=== PATIENT | female | born 1945 ===

== ENCOUNTER 2016-12-25 08:18 | Emergency (ER) | payer MEDICARE ==
[2016-12-25 08:18] VITALS: BMI 33.8
[2016-12-25 08:30] VITALS: RESP 18; TEMP 97.7
[2016-12-25] MEDS ORDERED: Sodium Chloride 0.9% 500 ML IV ONE (09:11)
[2016-12-25 09:35] LABS: BASO # 0.1 K/uL (0.0-0.2); BASO % 1.3 % (0.0-2.0); EOS # 0.1 K/uL (0.0-0.7); EOS % 1.2 % (0.0-4.0); HEMATOCRIT 33.7 % (34.0-47.0); LYMPH % 22.7 % (20.0-40.0); MEAN CELL VOLUME 86.2 fL (81.0-99.0); MEAN CORPUSCULAR HEMOGLOBIN 29.2 pg (27.0-31.0); MEAN CORPUSCULAR HGB CONC 33.9 g/dL (33.0-37.0); MEAN PLATELET VOLUME 9.9 fL (7.2-11.7); MONO # 1.3 K/uL (0.0-0.8); MONO % 14.6 % (0.0-10.0); RED CELL DISTRIBUTION WIDTH 19.2 % (11.5-14.5); WHITE BLOOD COUNT 8.7 K/uL (4.8-10.8)
[2016-12-25 09:43] LABS: CHLORIDE 95 mmol/L (98-107)
--- NOTE | 2016-12-25 09:43 | C.PDOC ---
History Of Present Illness 71 y/o female presents to the ED complaining of multiple episodes of " collapsing to the ground." She states that it occurs when she is walking or standing, and then she suddenly finds herself on the floor (no LOC). Patient admits to some leg weakness, and states it is difficult to ambulate today. She denies any chest pain, SOB palpitations, dizziness, visual changes, sensory changes, facial droop, slurred speech, recent viral illness or vaccinations. She denies h/o cardiac problems/sudden or PE/DVT in her family. Time Seen by Provider: 12/25/16 08:35 Chief Complaint (Nursing): Dizziness/Lightheaded History Per: Patient History/Exam Limitations: no limitations Onset/Duration Of Symptoms: Days, Intermittent Episodes Current Symptoms Are (Timing): Still Present Activity At Onset Of Symptoms: Standing, Walking Associated Symptoms Preceding Syncopal Episode: No Predromal Symptoms (Sudden Onset) Recent travel outside of the [place]: No Past Medical History Reviewed: Historical Data, Nursing Documentation, Vital Signs Vital Signs: Last Vital Signs Temp 97.7 F 12/25/16 08:19 Pulse 70 12/25/16 11:43 Resp 18 12/25/16 11:43 BP 174/77 H 12/25/16 11:43 Pulse Ox 95 12/25/16 12:23 - Medical History PMH: Anemia, Anxiety, Arthritis, Asthma, Bipolar Disorder, Depression, Diabetes , Fractures (right leg), HTN, Hypercholesterolemia, Kidney Stones, Osteoporosis , Peripheral Edema (no longer only when gout acts up), Pneumonia (3 yrs ago not hospitalized), TIA Surgical History: Endoscopy, Tonsillectomy - [facility] Procedures GROUP PSYCHOTHERAPY (12/06/16) INDIVID PSYCHOTHERAP NEC (04/21/14) INSPECTION OF BLADDER, ENDO (02/03/16) MEDICATION MANAGEMENT (12/06/16) OTHER GROUP THERAPY (04/21/14) REPAIR FEMALE PERINEUM, EXTERNAL APPROACH (05/04/16) REPAIR PELVIC SUBCU/FASCIA, OPEN APPROACH (05/04/16) REPOSITION BLADDER NECK, OPEN APPROACH (05/04/16) REPOSITION URETHRA, OPEN APPROACH (05/04/16) REPOSITION UTERUS, PERCUTANEOUS ENDOSCOPIC APPROACH (02/03/16) REPOSITION VAGINA, PERCUTANEOUS ENDOSCOPIC APPROACH (02/03/16) RESECTION OF BILATERAL FALLOPIAN TUBES, PERC ENDO APPROACH (02/03/16) RESECTION OF BILATERAL OVARIES, PERC ENDO APPROACH (02/03/16) RESECTION OF CERVIX, ENDO (02/03/16) RESECTION OF CERVIX, PERCUTANEOUS ENDOSCOPIC APPROACH (02/03/16) RESECTION OF UTERUS, PERCUTANEOUS ENDOSCOPIC APPROACH (02/03/16) ROBOTIC ASSISTED PROCEDURE OF TRUNK, PERC ENDO APPROACH (02/03/16) Family History: States: No Known Family Hx - Social History Hx Tobacco Use: No Hx Alcohol Use: No Hx Substance Use: No - Immunization History Hx Tetanus Toxoid Vaccination: No Hx Influenza Vaccination: Yes Hx Pneumococcal Vaccination: No Review Of Systems Except As Marked, All Systems Reviewed And Found Negative. Eyes: Negative for: Vision Change Cardiovascular: Negative for: Chest Pain, Palpitations Respiratory: Negative for: Cough, Shortness of Breath Gastrointestinal: Negative for: Nausea, Vomiting, Abdominal Pain, Diarrhea Neurological: Positive for: Weakness (b/l legs), Other (episodes of "collapsing to the ground"). Negative for: Numbness, Incoordination, Change in Speech, Confusion, Seizures, Altered Mental Status, Headache, Dizziness Physical Exam - Physical Exam Appears: Well, Non-toxic, No Acute Distress Skin: Normal Color, Warm, Dry Head: Atraumatic, Normacephalic Eye(s): bilateral: Normal Inspection, PERRL, EOMI, Other (no nystagmus) Oral Mucosa: Moist Neck: Normal, Normal ROM, No Midline Cervical Tenderness, No Paracervical Tenderness, No Step Off Deformity, Supple Chest: Symmetrical Cardiovascular: Rhythm Regular, No Murmur Respiratory: Normal Breath Sounds, No Rales, No Rhonchi, No Wheezing Gastrointestinal/Abdominal: Normal Exam, Bowel Sounds, Soft, No Tenderness Back: Normal Inspection, No CVA Tenderness, No Vertebral Tenderness, No Paraspinal Tenderness Extremity: Normal ROM, No Tenderness, No Pedal Edema, No Calf Tenderness, No Deformity, No Swelling Extremity: Bilateral: Atraumatic, Normal Color And Temperature, Normal ROM Neurological/Psych: Oriented x3, Normal Speech, Normal Cognition, Normal Cranial Nerves (II-XII intact), No Cerebellar Signs, Normal Motor, Normal Sensation, Normal Reflexes, No Dysarthria, No Romberg Gait: Steady ED Course And Treatment - Laboratory Results Result Diagrams: 12/25/16 09:30 12/25/16 09:30 ECG: Interpreted By Me, Viewed By Me (normal sinus rhythm at 71 bpm, normal axis , T wave inversions in II III and aVF, no acute ST changes) O2 Sat by Pulse Oximetry: 95 (ra) Pulse Ox Interpretation: Normal - Other Rad Chest X-Ray X-Ray: Viewed By Me, Read By Radiologist Interpretation: Accession No. : [id number]. Patient Name / ID : SHEILA GOLDBERG / [id number]. Exam Date : 12/25/2016 09:11:45 ( Approved ). Study Comment : Sex / Age : F / 71Y. Creator : ANTOLIN ANGELES. Dictator : Grady Castro MD. Software Support Analyst : Steelworker : Grady Castro MD. Approver2 : Report Date : 12/25/2016 09:36:17. My Comment : . PROCEDURE: CHEST RADIOGRAPH, 1 VIEW. HISTORY: FALLS. COMPARISON: 05/05/2016. FINDINGS: LUNGS: Mild venous congestion. PLEURA: No pneumothorax or pleural fluid seen. CARDIOVASCULAR: Tortuous ectatic aorta. OSSEOUS STRUCTURES: Degenerative changes in the spine and shoulders. Probable calcific tendinopathy of the left proximal humerus. VISUALIZED UPPER ABDOMEN: Normal. OTHER FINDINGS: None. IMPRESSION: Mild venous congestion. - CT Scan/US CT Head Other Rad Studies (CT/US): Read By Radiologist, Radiology Report Reviewed CT/US Interpretation: Accession No. : [id number]. Patient Name / ID : SHEILA GOLDBERG / [id number]. Exam Date : 12/25/2016 09:44:22 ( Approved ). Study Comment : Sex / Age : F / 71Y. Creator : Tramaine Strong. Dictator : Tramaine Strong. Software Support Analyst : Steelworker : Tramaine Strong. Approver2 : Report Date : 12/25/2016 09:57:50. My Comment : . PROCEDURE: CT HEAD WITHOUT CONTRAST. HISTORY: RECURRENT FALLS. COMPARISON: No significant interval change compared to the previous exam noted. TECHNIQUE: Axial computed tomography images were obtained through the head/brain without intravenous contrast. Radiation dose: Total exam DLP = 889.49 mGy-cm. FINDINGS: HEMORRHAGE: No intracranial hemorrhage. BRAIN: No mass effect or edema. No atrophy or chronic microvascular ischemic changes. Again seen are fairly symmetrical foci of calcification at the basal ganglia bilaterally. Distal vertebral and carotid arteries atherosclerotic calcification are again seen. VENTRICLES: Unremarkable. No hydrocephalus. CALVARIUM: Unremarkable. PARANASAL SINUSES: Unremarkable as visualized. No significant inflammatory changes. MASTOID AIR CELLS: Unremarkable as visualized. No inflammatory changes. OTHER FINDINGS: None. IMPRESSION: No evidence of acute intracranial hemorrhage territorial infarct mass effect or midline shift. If clinically warranted further assessment by MRI may be obtained. Progress Note: Blood work, Urinalysis, UDS, CT Head, Chest X-Ray, EKG ordered and reviewed. Patient given IV NS bolus. Reevaluation Time: 11:45 Reassessment Condition: Improved (Patient reassessed, is resting comfortably, currently asymptomatic. She has a normal physical exam, and blood work & Urinalysis unremarkable. UDS (+) for opiates. CT head (-) for acute findings. EKG shows T wave inversions, however patient has no CP/SOB/palpitations/ syncope. Patient is well appearing, and comfortable being discharged home. She was instructed to follow up with PMD in 1-2 days, and understands she should return to ED if symptoms worsen/return.) Disposition Counseled Patient/Family Regarding: Studies Performed, Diagnosis, Need For Followup - Disposition Referrals: Eileen Mcallister MD [Medical Doctor] - Disposition: HOME/ ROUTINE Disposition Time: 11:45 Condition: STABLE Additional Instructions: FOLLOW UP WITH YOUR DOCTOR IN 1-2 DAYS DRINK PLENTY OF FLUIDS RETURN TO ER IF YOU HAVE ANY CONCERNING SYMPTOMS Instructions: Fall Prevention (ED) Print Language: LAO - Clinical Impression Clinical Impression: Falls - Scribe Statement The provider has reviewed the documentation as recorded by the Scribe (Kathie Collazo) Provider Attestation: All medical record entries made by the Scribe were at my direction and personally dictated by me. I have reviewed the chart and agree that the record accurately reflects my personal performance of the history, physical exam, medical decision making, and the department course for this patient. I have also personally directed, reviewed, and agree with the discharge instructions and disposition.
[2016-12-25 09:44] LABS: SODIUM 138 mmol/L (132-148)
[2016-12-25 09:46] LABS: ALKALINE PHOSPHATASE 82 U/L (38-126); AST/SGOT 26 U/L (14-36); BILIRUBIN,TOTAL 0.4 mg/dL (0.2-1.3); CARBON DIOXIDE 32 mmol/L (22-30); GFR AFRICAN-AMERICAN > 60; TOTAL PROTEIN 7.6 g/dL (6.3-8.3)
[2016-12-25 09:47] LABS: ALT/SGPT 15 U/L (9-52); BLOOD UREA NITROGEN 13 mg/dL (7-17); CALCIUM 8.6 mg/dl (8.6-10.4); GLUCOSE,RANDOM 86 mg/dL (65-105)
--- NOTE | 2016-12-25 09:59 | CT ---
PROCEDURE: CT HEAD WITHOUT CONTRAST. HISTORY: RECURRENT FALLS COMPARISON: No significant interval change compared to the previous exam noted. TECHNIQUE: Axial computed tomography images were obtained through the head/brain without intravenous contrast. Radiation dose: Total exam DLP = 889.49 mGy-cm. FINDINGS: HEMORRHAGE: No intracranial hemorrhage. BRAIN: No mass effect or edema. No atrophy or chronic microvascular ischemic changes. Again seen are fairly symmetrical foci of calcification at the basal ganglia bilaterally. Distal vertebral and carotid arteries atherosclerotic calcification are again seen. VENTRICLES: Unremarkable. No hydrocephalus. CALVARIUM: Unremarkable. PARANASAL SINUSES: Unremarkable as visualized. No significant inflammatory changes. MASTOID AIR CELLS: Unremarkable as visualized. No inflammatory changes. OTHER FINDINGS: None. IMPRESSION: No evidence of acute intracranial hemorrhage territorial infarct mass effect or midline shift. If clinically warranted further assessment by MRI may be obtained.
[2016-12-25] MEDS ORDERED: Sodium Chloride 0.9% 1,000 ML ONE (10:05)
[2016-12-25 10:32] LABS: RBC URINE 6 /hpf (0-3); URINE BACTERIA OCC (<OCC); URINE BILIRUBIN NEGATIVE (NEGATIVE); URINE BLOOD 1+ (NEGATIVE); URINE COLOR Yellow (YELLOW); URINE GLUCOSE (UA) NORMAL (Normal); URINE KETONE NEGATIVE (NEGATIVE); URINE LEUKOCYTE ESTERASE TRACE Leu/uL (Negative); URINE PROTEIN NEGATIVE (NEGATIVE); URINE UROBILINOGEN NORMAL mg/dL (0.2-1.0); WBC URINE 5 /hpf (0-5)
--- NOTE | 2016-12-25 10:48 | RAD ---
PROCEDURE: CHEST RADIOGRAPH, 1 VIEW HISTORY: FALLS COMPARISON: 05/05/2016 FINDINGS: LUNGS: Mild venous congestion. PLEURA: No pneumothorax or pleural fluid seen. CARDIOVASCULAR: Tortuous ectatic aorta OSSEOUS STRUCTURES: Degenerative changes in the spine and shoulders. Probable calcific tendinopathy of the left proximal humerus. VISUALIZED UPPER ABDOMEN: Normal. OTHER FINDINGS: None. IMPRESSION: Mild venous congestion.
[2016-12-25 11:44] VITALS: BP 174/77; PULSE 70
[2016-12-25 11:45] VITALS: O2SAT 95
--- NOTE | 2016-12-26 12:55 | CARD ---
APPROVED REPORT EKG Measurement Heart [id number] <Conclusion> Normal sinus rhythm T wave abnormality, consider inferior ischemia Abnormal ECG
== END 2016-12-25 12:05 | disposition home or self-care (01) ==
LOC: C.ER 08:18
DX: R53.1 Weakness (principal); Z91.81 History of falling
CPT/HCPCS: 70450; 71010; 80053; 81001; 82550; 82553; 82948; 84484; 85025; 85610; 85730; 93005; 96360; 99285; G0480; J7040

== ENCOUNTER 2017-04-14 10:24 | Emergency (ER) | payer MEDICARE ==
[2017-04-14 10:25] VITALS: BMI 33.8
[2017-04-14 10:32] VITALS: RESP 18; TEMP 98
--- NOTE | 2017-04-14 10:56 | C.PDOC ---
History Of Present Illness Patient is a 71 year old female who presents to the ER with a complaint of new onset left wrist pain for the past 2 days. Patient states the pain is localized to the middle inside of her wrist with occasional radiation to the base of the thumb. Patient is unable to move wrist due to pain. Patient has a history of prior injury to the same location 4 months ago but had no medical evaluation. Patient states at the time symptoms spontaneously improved and wrist has been "fine" until now. Patient took a tylenol #3 at 0100 with no relief. Denies history of arthritis, chronic wrist pain, gross swelling, redness, associated fever or other symptoms. NEW ONSET PAIN L WRIST X 2 DAYS. PS PAIN LOCALIZED MIDDLE INSIDE OF WRIST OCC RADIATION BASE OF THUMB. UNABLE TO MOVE WRIST DUE TO PAIN. NO GROSS SWELLING, REDNESS. DENIES ASSOC FEVER, OTHER SX. NO RELIEF W TYL #3 @ 0100 HO PRIOR INJURY TO SAME 4 MO AGO BUT NO MED EVAL. PS SX SPONT IMPROVED AND WRIST HAS BEEN "FINE" UNTIL NOW. DENIES HO ARTHRITIS, CHRONIC WRIST PAIN. EXAM MILD DIST NONTOXIC EXT R WRIST NEG. L WRIST TEND OVER TENDON AREA W MIN SWELL. UNABLE TO ROM DUE TO PAIN. NO ERYTHEMA. HAND HELD ULNAR DEVIATION. FOREARM NEG NEURO NEG SKIN NEG Time Seen by Provider: 04/14/17 10:43 Chief Complaint (Nursing): Upper Extremity Problem/Injury History Per: Patient History/Exam Limitations: no limitations Onset/Duration Of Symptoms: Days (2) Current Symptoms Are (Timing): Still Present Exacerbating Factor(s): Movement Recent travel outside of the [place]: No Past Medical History Reviewed: Historical Data, Nursing Documentation, Vital Signs Vital Signs: Last Vital Signs Temp 98 F 04/14/17 10:31 Pulse 72 04/14/17 10:31 Resp 18 04/14/17 10:31 BP 156/60 H 04/14/17 10:31 Pulse Ox 96 04/14/17 12:00 - Medical History PMH: Anemia, Anxiety, Arthritis, Asthma, Bipolar Disorder, Depression, Diabetes , Fractures (right leg), HTN, Hypercholesterolemia, Kidney Stones, Osteoporosis , Peripheral Edema (no longer only when gout acts up), Pneumonia (3 yrs ago not hospitalized), TIA Surgical History: Endoscopy, Tonsillectomy - [facility] Procedures GROUP PSYCHOTHERAPY (12/06/16) INDIVID PSYCHOTHERAP NEC (04/21/14) INSPECTION OF BLADDER, ENDO (02/03/16) MEDICATION MANAGEMENT (12/06/16) OTHER GROUP THERAPY (04/21/14) REPAIR FEMALE PERINEUM, EXTERNAL APPROACH (05/04/16) REPAIR PELVIC SUBCU/FASCIA, OPEN APPROACH (05/04/16) REPOSITION BLADDER NECK, OPEN APPROACH (05/04/16) REPOSITION URETHRA, OPEN APPROACH (05/04/16) REPOSITION UTERUS, PERCUTANEOUS ENDOSCOPIC APPROACH (02/03/16) REPOSITION VAGINA, PERCUTANEOUS ENDOSCOPIC APPROACH (02/03/16) RESECTION OF BILATERAL FALLOPIAN TUBES, PERC ENDO APPROACH (02/03/16) RESECTION OF BILATERAL OVARIES, PERC ENDO APPROACH (02/03/16) RESECTION OF CERVIX, ENDO (02/03/16) RESECTION OF CERVIX, PERCUTANEOUS ENDOSCOPIC APPROACH (02/03/16) RESECTION OF UTERUS, PERCUTANEOUS ENDOSCOPIC APPROACH (02/03/16) ROBOTIC ASSISTED PROCEDURE OF TRUNK, PERC ENDO APPROACH (02/03/16) Family History: States: Unknown Family Hx - Social History Hx Tobacco Use: No Hx Alcohol Use: No Hx Substance Use: No - Immunization History Hx Tetanus Toxoid Vaccination: No Hx Influenza Vaccination: Yes Hx Pneumococcal Vaccination: No Review Of Systems Except As Marked, All Systems Reviewed And Found Negative. Constitutional: Negative for: Fever Musculoskeletal: Positive for: Arm Pain (Left wrist) Skin: Negative for: Other (Redness, swelling to left wrist) Physical Exam - Physical Exam Appears: Non-toxic, Other (Mild Distress) Skin: Normal Color, Warm, Dry Head: Atraumatic, Normacephalic Oral Mucosa: Moist Respiratory: Other (Speaking in complete sentences, no respiratory distress.) Extremity: Left: Other (Wrist, unable to ROM due to pain, no erythema, hand held ulnar deviation.), Right: Normal Color And Temperature (Wrist), Normal ROM (Wrist), Bilateral: Atraumatic (Forearms) Pulses: Left Radial: Normal, Right Radial: Normal Neurological/Psych: Oriented x3, Normal Speech, Normal Cognition, Other (No focal deficits) ED Course And Treatment O2 Sat by Pulse Oximetry: 96 (Room air) Pulse Ox Interpretation: Normal Progress Note: Left hand, wrist, and forearm x-ray ordered. Toradol administered. Orthopedic Time Performed: 11:44 Time Out: Side verified, Site verified, Patient ID confirmed Procedure: Splint Type: Short, Volar Location: Left, Wrist Consent obtained: Verbal Performed by: Attending Physician Diagnosis: Fracture Type: Closed, Minimally displaced, Comminuted Capillary refill: Normal Distal Sensation: Normal Distal Motor Function: Normal Capillary Refill: Normal Compartment: Normal Distal Sensation: Normal Distal Motor Function: Normal Progress - Re-Evaluation Re-evaluation Note: 04/14/17 11:41 D/W DR NÚÑEZ ORTHO CORD SPLICER: AWARE OF ER FINDINGS AND AGREES W DC PLAN. 04/14/17 11:58 FEELS BETTER S/P TORADOL - Data Reviewed Data Reviewed: Lab, Diagnostic imaging, Old records - Continuity of Care Discussed patient case with:: Patient, Family-HIPPA compliant Discussed pt. case with senior consultant/specialty: Orthopedic Surgery Disposition Counseled Patient/Family Regarding: Studies Performed, Diagnosis, Need For Followup, Rx Given - Disposition Referrals: Maritza Núñez MD [Staff Provider] - Disposition: HOME/ ROUTINE Disposition Time: 11:59 Condition: IMPROVED Prescriptions: Ibuprofen [Motrin] 600 mg PO Q6 #30 tab Instructions: Wrist Fracture in Adults (ED), Splint Care (ED) - Clinical Impression Clinical Impression: Chronic fracture, Wrist pain - Scribe Statement The provider has reviewed the documentation as recorded by the Scribe Stephen Armstrong All medical record entries made by the Scribe were at my direction and personally dictated by me. I have reviewed the chart and agree that the record accurately reflects my personal performance of the history, physical exam, medical decision making, and the department course for this patient. I have also personally directed, reviewed, and agree with the discharge instructions and disposition. Orthopedic Care Application Of:: Sling (L ARM)
[2017-04-14 12:05] VITALS: BP 148/60; PULSE 70; O2SAT 97
--- NOTE | 2017-04-14 15:25 | RAD ---
PROCEDURE: Left Hand Radiographs. HISTORY: PAIN HO TRAUMA 4 MO AGO COMPARISON: None. FINDINGS: BONES: Comminuted transverse nondisplaced distal radial fracture. No other fracture identified. Please note that a portion of the 4th proximal phalanx is obscured by metal ring. . JOINTS: Normal. No osteoarthritic changes. SOFT TISSUES: Normal. OTHER FINDINGS: None. IMPRESSION: Distal radial fracture. Otherwise unremarkable.
--- NOTE | 2017-04-14 15:27 | RAD ---
PROCEDURE: Left Wrist Radiographs. HISTORY: PAIN HO TRAUMA 4 MO AGO COMPARISON: 12/12/2016 FINDINGS: BONES: Healing comminuted transverse distal radial fracture. Intra-articular extension with step-off of distal radial articular surface. No acute fracture identified. There is callus seen about the fracture. There is no joint effusion. JOINTS: As above SOFT TISSUES: Normal. OTHER FINDINGS: None. IMPRESSION: Healing comminuted intra-articular distal radial fracture.
--- NOTE | 2017-04-14 15:28 | RAD ---
PROCEDURE: Radiographs of the Left Forearm HISTORY: PAIN HO TRAUMA 4 MO AGO COMPARISON: None available. TECHNIQUE: Frontal and lateral views obtained. FINDINGS: BONES: No acute fracture. Healing comminuted distal radial fracture. JOINT SPACES: Unremarkable. OTHER FINDINGS: None. IMPRESSION: Healing comminuted distal radial fracture. No acute fracture
== END 2017-04-14 12:06 | disposition home or self-care (01) ==
LOC: C.ER 10:24
DX: S62.102A Fracture of unspecified carpal bone, left wrist, initial encounter for closed fracture (principal); X58.XXXA Exposure to other specified factors, initial encounter; Y93.89 Activity, other specified; Y92.89 Other specified places as the place of occurrence of the external cause
CPT/HCPCS: 73090; 73110; 73130; 96372; 99284; J1885